=== PATIENT | female | born 1955 | race American Indian/Alaskan Native ===

== ENCOUNTER 2019-10-01 20:24 | Emergency (ER) | payer BC ==
--- NOTE | 2019-10-01 20:36 | Event Note ---
ED Screening Note Date of service: 10/01/19 Time: 20:34 ED Screening Note: 64 y o f with pmh of anemia was sent by PCP for low H and H pt cc of weakness, fatigue This initial assessment/diagnostic orders/clinical plan/treatment(s) is/are subject to change based on patients health status, clinical progression and re- assessment by fellow clinical providers in the ED. Further treatment and workup at subsequent clinical providers discretion. Patient/guardian urged not to elope from the ED as their condition may be serious if not clinically assessed and managed. Initial orders include: cbc,bmp, type and screen main side eval
[2019-10-01 21:27] LABS: Basophils # (Auto) 0.1 K/mm3 (0.0-0.1); Basophils % (Auto) 0.7 % (0.0-1.8); Eosinophils # (Auto) 0.1 K/mm3 (0.0-0.4); Eosinophils % (Auto) 0.8 % (0.0-4.3); Hematocrit 21.1 % (30.3-42.9); Hemoglobin 6.5 gm/dl (10.1-14.3); Lymphocytes # (Auto) 1.1 K/mm3 (1.2-5.4); Lymphocytes % (Auto) 11.4 % (13.4-35.0); Mean Corpuscular HGB Conc 31 % (30-34); Mean Corpuscular Volume 70 fl (79-97); Monocytes % (Auto) 10.4 % (0.0-7.3); Platelet Count 456 K/mm3 (140-440); Red Cell Distribution Width 17.7 % (13.2-15.2)
[2019-10-01 21:43] LABS: Calcium 9.1 mg/dL (8.4-10.2)
[2019-10-01] MEDS ORDERED: SODIUM CHLORIDE 0.9% 500 ML 500 ML IV ONE (22:15)
--- NOTE | 2019-10-01 22:22 | Emergency Department Report ---
- General Chief complaint: Recheck/Abnormal Lab/Rx Stated complaint: BLOOD COUNT 6.3 Time Seen by Provider: 10/01/19 22:03 Source: patient Mode of arrival: Ambulatory Limitations: No Limitations - History of Present Illness Initial comments: Ms. Sylvester is a 64-year-old female with history of anemia, hypertension, gout who presents with fatigue and weakness for the past 5 weeks. She is severe shortness of breath upon exertion. She is unable to walk 10 steps before getting out of breath. She denies dark stools. She denies bloody stools. She was diagnosed with anemia 8 to 9 months ago. Her PCP is located at [facility]. She has never had a colonoscopy. She has been "putting it off". Her PCP referred her to the emergency department for low hemoglobin. She was instructed to take vitamin B12. Complaint: generalized weakness -: Gradual, week(s) (5) Location: generalized Severity: moderate Severity scale (0 -10): 0 Consistency: constant Improves with: none Worsens with: none Associated Symptoms: other (Fatigue shortness of breath) - Related Data Home Medications Medication Instructions Recorded Confirmed Last Taken Acetaminophen [Tylenol] 1,000 mg PO Q8H PRN 10/01/19 10/01/19 Unknown Aspirin 325 mg PO BID 10/01/19 10/01/19 Unknown Colchicine 0.6 mg PO DAILY 10/01/19 10/01/19 10/01/19 Cyanocobalamin (Vitamin B-12) 1,000 mcg PO DAILY 10/01/19 10/01/19 Unknown [B-12] Cyclobenzaprine [Flexeril] 5 mg PO TID PRN 10/01/19 10/01/19 Unknown Docusate Sodium [Colace] 100 mg PO BID PRN 10/01/19 10/01/19 Unknown Ferrous Sulfate [Iron 325 MG] 325 mg PO TID 10/01/19 10/01/19 Unknown Lisinopril/Hydrochlorothiazide 1 tab PO QDAY 10/01/19 10/01/19 Unknown [Zestoretic 20-25 mg] allopurinoL [Zyloprim] 100 mg PO BID 10/01/19 10/01/19 Unknown amLODIPine [Norvasc] 10 mg PO DAILY 10/01/19 10/01/19 10/01/19 1000 Previous Rx's Medication Instructions Recorded Last Taken Type Ferrous Sulfate [Ferrous Sulfate 324 mg PO TID #90 tablet. 10/01/19 Unknown Rx 324 MG] Allergies Allergy/AdvReac Type Severity Reaction Status Date / Time codeine Allergy Hives Verified 10/01/19 20:27 Sulfa (Sulfonamide Allergy Hives Verified 10/01/19 20:27 Antibiotics) ED Review of Systems ROS: Stated complaint: BLOOD COUNT 6.3 Other details as noted in HPI Comment: All other systems reviewed and negative Constitutional: fever, malaise. denies: chills ENT: denies: ear pain Respiratory: shortness of breath. denies: cough Cardiovascular: denies: chest pain Gastrointestinal: denies: abdominal pain, nausea, vomiting, hematemesis, melena, hematochezia ED Past Medical Hx - Past Medical History Previous Medical History?: Yes Hx Hypertension: Yes Hx Arthritis: Yes (GOUT) Additional medical history: anemia - Surgical History Past Surgical History?: Yes Additional Surgical History: c-sec - Social History Smoking Status: Never Smoker - Medications Home Medications: Home Medications Medication Instructions Recorded Confirmed Last Taken Type Acetaminophen [Tylenol] 1,000 mg PO Q8H PRN 10/01/19 10/01/19 Unknown History Aspirin 325 mg PO BID 10/01/19 10/01/19 Unknown History Colchicine 0.6 mg PO DAILY 10/01/19 10/01/19 10/01/19 History Cyanocobalamin (Vitamin B-12) 1,000 mcg PO DAILY 10/01/19 10/01/19 Unknown History [B-12] Cyclobenzaprine [Flexeril] 5 mg PO TID PRN 10/01/19 10/01/19 Unknown History Docusate Sodium [Colace] 100 mg PO BID PRN 10/01/19 10/01/19 Unknown History Ferrous Sulfate [Ferrous Sulfate 324 mg PO TID #90 tablet. 10/01/19 Unknown Rx 324 MG] Ferrous Sulfate [Iron 325 MG] 325 mg PO TID 10/01/19 10/01/19 Unknown History Lisinopril/Hydrochlorothiazide 1 tab PO QDAY 10/01/19 10/01/19 Unknown History [Zestoretic 20-25 mg] allopurinoL [Zyloprim] 100 mg PO BID 10/01/19 10/01/19 Unknown History amLODIPine [Norvasc] 10 mg PO DAILY 10/01/19 10/01/19 10/01/19 History 1000 ED Physical Exam - General Limitations: No Limitations General appearance: alert, in no apparent distress - Head Head exam: Present: atraumatic, normocephalic - Eye Eye exam: Present: normal appearance - ENT ENT exam: Present: mucous membranes moist - Neck Neck exam: Present: normal inspection, full ROM - Respiratory Respiratory exam: Present: normal lung sounds bilaterally. Absent: respiratory distress, wheezes, rales, rhonchi - Cardiovascular Cardiovascular Exam: Present: regular rate, normal rhythm, normal heart sounds. Absent: systolic murmur, diastolic murmur, rubs, gallop - GI/Abdominal GI/Abdominal exam: Present: soft, normal bowel sounds. Absent: distended, tenderness, guarding, rebound - Rectal Rectal exam: Present: normal rectal tone, heme (-) stool, hemorrhoids - Extremities Exam Extremities exam: Present: normal inspection - Neurological Exam Neurological exam: Present: alert, oriented X3 - Psychiatric Psychiatric exam: Present: normal affect, normal mood - Skin Skin exam: Present: warm, dry, intact, normal color. Absent: rash ED Course Vital Signs 10/01/19 10/01/19 10/01/19 20:59 21:54 22:00 Temperature 98.6 F 98.2 F Pulse Rate 96 H 89 Respiratory 18 11 L Rate Blood Pressure 136/76 129/78 Blood Pressure 145/79 [Right] O2 Sat by Pulse 100 100 100 Oximetry 10/01/19 10/01/19 10/01/19 22:16 22:30 22:46 Temperature Pulse Rate 90 86 89 Respiratory 15 13 11 L Rate Blood Pressure 129/78 140/80 140/80 Blood Pressure [Right] O2 Sat by Pulse 100 100 100 Oximetry 10/01/19 10/01/19 10/01/19 23:00 23:01 23:16 Temperature Pulse Rate 101 H 89 81 Respiratory 14 13 11 L Rate Blood Pressure 134/62 134/62 134/62 Blood Pressure [Right] O2 Sat by Pulse 100 100 100 Oximetry 10/01/19 10/01/19 10/02/19 23:30 23:45 00:00 Temperature Pulse Rate 87 87 Respiratory 16 14 Rate Blood Pressure 142/72 142/72 142/72 Blood Pressure [Right] O2 Sat by Pulse 100 100 Oximetry 10/02/19 10/02/19 10/02/19 00:15 00:21 00:25 Temperature 98 F 97.8 F Pulse Rate 80 81 Respiratory 11 L 11 L Rate Blood Pressure 142/72 125/64 130/71 Blood Pressure [Right] O2 Sat by Pulse 100 100 Oximetry 10/02/19 10/02/19 10/02/19 00:30 00:40 00:46 Temperature 97.8 F Pulse Rate 83 81 86 Respiratory 14 11 L 13 Rate Blood Pressure 136/68 130/71 130/71 Blood Pressure [Right] O2 Sat by Pulse 100 100 100 Oximetry 10/02/19 01:00 Temperature 98.1 F Pulse Rate 82 Respiratory 15 Rate Blood Pressure 127/71 Blood Pressure 127/71 [Right] O2 Sat by Pulse 99 Oximetry ED Medical Decision Making - Lab Data Result diagrams: 10/01/19 21:13 10/01/19 21:13 - Medical Decision Making Ms. Tai presents with microcytic anemia, reported low hemoglobin per outpatient labs. Differential diagnosis includes chronic GI blood loss, iron deficiency, Hemoccult negative stools. I have referred Ms. Tai to ent surgeon, g astroenterologist and PCP. I recommend outpatient colonoscopy. Also recommended outpatient hematology evaluation. I have prescribed iron tablets. I strongly recommended high-fiber diet. She received transfusion packed red blood cells which were indicated due to severe symptoms and tachycardia with minimal exertion. She did not have adverse reaction to transfusion. Discharged home in stable condition. Critical care attestation.: If time is entered above; I have spent that time in minutes in the direct care of this critically ill patient, excluding procedure time. ED Disposition Clinical Impression: Microcytic anemia Disposition: DC-01 TO HOME OR SELFCARE Is pt being admited?: No Does the pt Need Aspirin: No Condition: Stable Instructions: Iron Rich Diet (ED), Iron Deficiency Anemia (ED) Additional Instructions: It is strongly advised that you see our cattle dehorner for colonoscopy. Also please see our ent surgeon for further investigation for anemia. Also see our primary care physician for a full physical. Prescriptions: Ferrous Sulfate [Ferrous Sulfate 324 MG] 324 mg PO TID #90 tablet.dr Referrals: SHANDRA PRADHAN MD [Staff Physician] - 3-5 Days ELISABETH ALVAREZ MD [Staff Physician] - 3-5 Days MANSOOR HEALY MD [Staff Physician] - 3-5 Days Forms: Work/School Release Form(ED)
[2019-10-02] MEDS ORDERED: SODIUM CHLORIDE 0.9% 500 ML 500 ML ONE (00:23)
[2019-10-02 02:22] VITALS: BP 123/63
== END 2019-10-02 02:23 | disposition home or self-care (01) ==
LOC: ED 20:24
DX: D50.9 Iron deficiency anemia, unspecified (principal); I10 Essential (primary) hypertension; M19.90 Unspecified osteoarthritis, unspecified site; Z79.82 Long term (current) use of aspirin; Z79.899 Other long term (current) drug therapy; Z88.2 Allergy status to sulfonamides; Z88.6 Allergy status to analgesic agent
CPT/HCPCS: 36415; 36430; 80048; 85025; 86850; 86900; 86901; 86920; 99283; J7040; P9016

== ENCOUNTER 2020-04-08 07:33 | Outpatient (CLI) | payer BC ==
[2020-04-08 08:48] LABS: Blood Urea Nitrogen 24 mg/dL (7-17)
--- NOTE | 2020-04-08 10:57 | Cat Scan Report ---
CT CHEST WITH CONTRAST INDICATION / CLINICAL INFORMATION: D64.9 ANEMIA/R68.89Other general symptoms and signs. TECHNIQUE: Axial CT images were obtained through the chest after 100 cc Omnipaque 300 IV contrast. Sagittal and coronal reformatted images. All CT scans at this location are performed using CT dose reduction for A MICHAEL by means of automated exposure control. COMPARISON: None available. FINDINGS: HEART: No significant abnormality. THORACIC AORTA: No significant abnormality. MEDIASTINUM and JOSE M: The inferior half of the thyroid gland is included. The thyroid gland is enlarg ed and heterogeneous with scattered ill-defined thyroid nodules. This probably represents a multinodu lar goiter. The remainder of the mediastinum is unremarkable. No pathologic adenopathy. LUNGS: No acute air space or interstitial disease. Bilateral pulmonary nodules are identified. Appro ximately 5 nodules are identified in the right lung with the largest measuring 1.2 cm in the right lo wer lobe. 3 or 4 pulmonary nodules are identified in the left lung with the largest measuring 5 mm in the left upper lobe. PLEURA: No significant pleural effusion. No pneumothorax. SKELETAL SYSTEM: Mild thoracic spondylosis. No fracture or suspicious bony lesion is appreciated IMPRESSION: Bilateral pulmonary nodules are identified concerning for a metastatic process. No thoracic adenopath y. Probable multinodular goiter. CT ABDOMEN AND PELVIS WITH CONTRAST HISTORY: D64.9 ANEMIA/R68.89Other general symptoms and signs COMPARISON: None. TECHNIQUE: Axial CT images were obtained through the abdomen and pelvis after 100 cc of Omnipaque 300 intravenously. Sagittal and coronal reformatted images. All CT scans at this location are performed using CT dose reduction for ALARA by means of automated exposure control. FINDINGS: CT ABDOMEN: Liver: No significant abnormality. Biliary: There are multiple small calcified gallstones in the fundus of the gallbladder. No abnormal biliary dilatation or inflammation. Spleen: No significant abnormality. Unenlarged. Pancreas: No significant abnormality. Adrenals: No significant abnormality. Kidneys: There are a few bilateral simple renal cysts with the largest measuring 2.7 cm at the superi or pole of the left kidney. The kidneys and collecting systems are unremarkable otherwise. Lymphatics: No pathologic lymphadenopathy is identified. There are 2 borderline lymph nodes in the po rta hepatis measuring 1 cm in short axis. Vasculature: No significant abnormality. Bowel/Peritoneum: Mild diverticulosis of the distal colon is identified. No evidence for acute inflam mation, obstruction or obvious mass in the GI system. No free fluid or free air. The appendix is norm al. CT PELVIS: : The uterus is normal size and contour. Subcentimeter calcified fibroid is noted in the right late ral wall. There is a second 1.4 cm calcification overlying the left fallopian tubule which is of unce rtain significance. The ovaries are unremarkable. No suspicious gynecological mass is appreciated. Th e bladder and distal ureters are unremarkable. Osseous Structures: Moderate thoracolumbar spondylosis. No fracture or suspicious bony lesion is appr eciated. Additional Findings: Small umbilical hernia containing fat. IMPRESSION: Cholelithiasis but no evidence for acute cholecystitis. Bilateral simple renal cysts. Borderline joe hepatis lymph nodes which are likely reactive in nature. No visceral mass or pathologic adenopathy is detected. Small umbilical hernia containing fat. Signer Name: David Tamayo Jr, MD Signed: 04/08/2020 10:52 AM Workstation Name: [id number]
== END 2020-04-08 07:34 | disposition home or self-care (01) ==
LOC: CT 07:33
PROVIDERS: ATTEND Internal Medicine Hematology & Oncology
DX: K80.20 Calculus of gallbladder without cholecystitis without obstruction (principal); R91.8 Other nonspecific abnormal finding of lung field; D64.9 Anemia, unspecified; R68.89 Other general symptoms and signs; M10.9 Gout, unspecified; M19.90 Unspecified osteoarthritis, unspecified site; N28.1 Cyst of kidney, acquired; K42.0 Umbilical hernia with obstruction, without gangrene
CPT/HCPCS: 36415; 71260; 74177; 82565; 84520; Q9967

== ENCOUNTER 2020-10-09 08:35 | Outpatient (CLI) | payer MEDICARE | END 2020-10-09 08:36 | disposition home or self-care (01) | LOC: MAMMO 08:35 | PROVIDERS: ATTEND Internal Medicine | DX: Z12.31 Encounter for screening mammogram for malignant neoplasm of breast (principal) | CPT/HCPCS: 77067 ==

== ENCOUNTER 2020-10-26 09:35 | Outpatient (CLI) | payer MEDICARE ==
[2020-10-26 11:12] LABS: Blood Urea Nitrogen 21 mg/dL (7-17)
--- NOTE | 2020-10-26 12:09 | Cat Scan Report ---
CT CHEST ABDOMEN AND PELVIS WITH CONTRAST INDICATION / CLINICAL INFORMATION: 65-year-old female with history of anemia, gout, osteoarthritis and pulmonary nodule TECHNIQUE: Axial CT images were obtained through the chest, abdomen and pelvis after 100 cc Omnipaque 300 morgan grams percent IV contrast. All CT scans at this location are performed using CT dose reduction for A MICHAEL by means of automated exposure control. COMPARISON: 04/08/2020 CT chest abdomen pelvis FINDINGS: THORACIC INLET: Enlarged thyroid gland predominantly left lobe with intrathoracic thyroid goiter on t he left unchanged from previous exam HEART: No significant abnormality. Moderate coronary calcifications present THORACIC AORTA: No significant abnormality. MEDIASTINUM and JOSE M: No significant abnormality. LUNGS: No acute air space or interstitial disease. PLEURA: No significant pleural effusion. No pneumothorax. LIVER: No significant abnormality. GALLBLADDER: Cholelithiasis BILE DUCTS: No significant abnormality. PANCREAS: No significant abnormality. SPLEEN: No significant abnormality. ADRENALS: No significant abnormality. RIGHT KIDNEY and URETER: 2 cm right renal cyst. LEFT KIDNEY and URETER: 2.8 cm left renal cyst STOMACH and SMALL BOWEL: No significant abnormality. COLON: No significant abnormality. APPENDIX: No significant abnormality. PERITONEUM: Small anterior abdominal wall defect with herniation of fat No free fluid. No free air. N o fluid collection. LYMPH NODES: No significant adenopathy. AORTA and ARTERIES: No significant abnormality. IVC and VEINS: No significant abnormality. URINARY BLADDER: No significant abnormality. REPRODUCTIVE ORGANS: No interval change in the calcifications involving the pelvis adjacent to the ut erus questionable pedunculated fibroid ADDITIONAL FINDINGS: None. SKELETAL SYSTEM: Degenerative changes thoracic spine. IMPRESSION: 1. No interval change as compared to previous CT chest abdomen pelvis 2. Enlarged thyroid with a left intrathoracic thyroid goiter 3. Bilateral renal cyst 3. Cholelithiasis Signer Name: Jose Ramon Carrillo MD Signed: 10/26/2020 12:04 PM Workstation Name: [id number]
== END 2020-10-26 09:36 | disposition home or self-care (01) ==
LOC: CT 09:35
PROVIDERS: ATTEND Internal Medicine Hematology & Oncology
DX: N28.1 Cyst of kidney, acquired (principal); E04.9 Nontoxic goiter, unspecified; I25.10 Atherosclerotic heart disease of native coronary artery without angina pectoris; K80.20 Calculus of gallbladder without cholecystitis without obstruction; D64.9 Anemia, unspecified; M10.9 Gout, unspecified; R91.8 Other nonspecific abnormal finding of lung field; M19.90 Unspecified osteoarthritis, unspecified site; R68.89 Other general symptoms and signs
CPT/HCPCS: 36415; 71260; 74177; 82565; 84520; Q9967

== ENCOUNTER 2021-01-11 10:50 | Outpatient (CLI) | payer MEDICARE ==
--- NOTE | 2021-01-11 12:05 | XRay Report ---
XR knee 1-2V RT INDICATION / CLINICAL INFORMATION: RIGHT KNEE PAIN. COMPARISON: None available. FINDINGS: No acute fracture. Normal alignment. Decreased joint space predominantly within the medial compartm ent. With bulky osteophytes of the patellofemoral compartment. .No destructive osseous lesion or susp icious periosteal reaction. Impression: 1. Moderate osteoarthritis. Signer Name: Junaid Abdul MD Signed: 01/11/2021 12:01 PM Workstation Name: [id number]
== END 2021-01-11 10:51 | disposition home or self-care (01) ==
LOC: XRAY 10:50
PROVIDERS: ATTEND Internal Medicine
DX: M17.12 Unilateral primary osteoarthritis, left knee (principal)

== ENCOUNTER 2021-04-05 10:03 | Outpatient (CLI) | payer MEDICARE ==
[2021-04-05 11:09] LABS: Blood Urea Nitrogen 23 mg/dL (7-17)
--- NOTE | 2021-04-05 13:31 | Cat Scan Report ---
CT CHEST, ABDOMEN AND PELVIS WITH CONTRAST HISTORY: Anemia, unspecified. COMPARISON: Prior CT on 10/26/2020 TECHNIQUE: Routine chest, abdominal and pelvic CT exam performed following intravenous contrast admi nistration. 100 mL Omnipaque [address] scans at this location are performed using CT d ose reduction for ALARA by means of automated exposure control. FINDINGS: CT CHEST: Lungs: No significant abnormality. Previous identified pulmonary nodules on the scan from 04/08/[address] resolved. Trachea and Bronchi: No significant abnormality. Heart and Pericardium: Mild coronary atherosclerotic calcifications. Vasculature: No significant abnormality. Lymphatics: No lymphadenopathy. CT ABDOMEN: Liver: No significant abnormality. Biliary: Cholelithiasis without evidence of acute cholecystitis. Spleen: No significant abnormality. Unenlarged. Pancreas: No significant abnormality. Adrenals: No significant abnormality. Kidneys: Stable bilateral renal cysts. Lymphatics: No lymphadenopathy. Vasculature: No significant abnormality. Bowel/Peritoneum: Nonobstructive bowel. Sigmoid diverticulosis without mesocolonic fat stranding. No free air. No free fluid. Small fat-containing umbilical hernia again noted. CT PELVIC: : No significant abnormality. Lymphatics: No lymphadenopathy. Osseous Structures: No aggressive appearing osseous lesions. Additional Findings: Stable large left thyroid nodule measuring 4.3 cm. IMPRESSION: 1. No acute findings or adverse change from the prior exam. 2. Stable chronic findings as above. Signer Name: Arnaud Jhaveri MD Signed: 04/05/2021 1:26 PM Workstation Name: [id number]
== END 2021-04-05 10:04 | disposition home or self-care (01) ==
LOC: CT 10:03
PROVIDERS: ATTEND Internal Medicine Hematology & Oncology
DX: R91.8 Other nonspecific abnormal finding of lung field (principal); N28.1 Cyst of kidney, acquired; R59.0 Localized enlarged lymph nodes; K57.30 Diverticulosis of large intestine without perforation or abscess without bleeding; D64.9 Anemia, unspecified; N26.1 Atrophy of kidney (terminal); I25.10 Atherosclerotic heart disease of native coronary artery without angina pectoris; E04.1 Nontoxic single thyroid nodule; K42.9 Umbilical hernia without obstruction or gangrene
CPT/HCPCS: 36415; 71260; 74177; 82565; 84520; Q9967

== ENCOUNTER 2021-08-24 08:20 | Outpatient (CLI) | payer MEDICARE ==
--- NOTE | 2021-08-24 09:43 | XRay Report ---
RIGHT KNEE 2 VIEWS [id number] INDICATION: PAIN IN RIGHT KNEE COMPARISON: 07/09/2021 FINDINGS: Knee prosthesis appears to be in good position. No fractures or dislocations are seen. Signer Name: Amaury Retana MD Signed: 08/24/2021 9:38 AM Workstation Name: [id number]
== END 2021-08-24 08:21 | disposition home or self-care (01) ==
LOC: XRAY 08:20
PROVIDERS: ATTEND Orthopaedic Surgery
DX: M25.561 Pain in right knee (principal); Z96.651 Presence of right artificial knee joint

== ENCOUNTER 2021-11-15 10:33 | Outpatient (CLI) | payer MEDICARE ==
--- NOTE | 2021-11-16 09:47 | Mammography Report ---
DIGITAL SCREENING MAMMOGRAM WITH CAD, 11/15/2021 CLINICAL INFORMATION / INDICATION: Routine screening TECHNIQUE: Digital bilateral 2D mammography was obtained in the craniocaudal and mediolateral obliqu e projections. This examination was interpreted with the benefit of Computer-Aided Detection analysis . COMPARISON: 10/09/2020 FINDINGS: Breast Density: The breasts are almost entirely fatty. No dominant mass, suspicious calcifications, or architectural distortion in either breast. Benign-appearing calcifications including moderate arterial calcifications are again seen. IMPRESSION: No mammographic evidence of malignancy. Follow up recommendation: Routine yearly BI-RADS Category 2: BENIGN. A "normal" or negative report should not discourage follow up or biopsy of a clinically significant f inding. A written summary of these findings will be mailed to the patient. The patient will be entered into a mammography reporting system which will generate a reminder letter for the patient's next appointmen t at the appropriate interval. The [employer] recommends yearly mammograms starting at age 40 and continuing as l santhosh as a woman is in good health. Breast MRI is recommended for women with an approximate 20-25% or greater lifetime risk of breast cancer, including women with a strong family history of breast or ova marvin cancer or who have been treated for Hodgkin's disease. Signer Name: Amaury Retana MD Signed: 11/16/2021 9:43 AM Workstation Name: [id number]
== END 2021-11-15 10:34 | disposition home or self-care (01) ==
LOC: MAMMO 10:33
PROVIDERS: ATTEND Internal Medicine
DX: Z12.31 Encounter for screening mammogram for malignant neoplasm of breast (principal); N64.89 Other specified disorders of breast
CPT/HCPCS: 77067

== ENCOUNTER 2022-03-18 08:34 | Outpatient (CLI) | payer MEDICARE ==
--- NOTE | 2022-03-18 11:06 | Mammography Report ---
DEXA BONE DENSITY SCAN INDICATION / CLINICAL INFORMATION: Z13.820. 66 years Female COMPARISON: None available. LUMBAR SPINE, L1-L4: - Bone mineral density (BMD) = 0.969 g/cm2. - T-score = -0.7 - Z-score = 0.6 Change (%) since most recent prior (if available): None available. LEFT HIP, NECK : - Bone mineral density (BMD) = 0.692 g/cm2. - T-score = -1.4 - Z-score = -0.4 Change (%) since most recent prior (if available): None available. IMPRESSION: 1. WHO Classification: Osteopenia. Fracture Risk: Increased. 2. 10-Year Fracture Risk (FRAX) = Major Osteoporotic 3.4% / Hip: 0.4% FRAX generally not reported for patients with normal or osteoporotic BMD, in [id number] dilma ents younger than age 50, or in patients undergoing pharmacotherapy BMD Reporting Guidelines (ISCD, 2015) BMD Reporting in Postmenopausal Women and in Men Age 50 and Older - T-scores are preferred. - The WHO densitometric classification is applicable. BMD Reporting in Females Prior to Menopause and in Males Younger Than Age 50 - Z-scores, not T-scores, are preferred. This is particularly important in children. - A Z-score of -2.0 or lower is defined as below the expected range for age, and a Z-score above -2.0 is within the expected range for age. - Osteoporosis cannot be diagnosed in men under age 50 on the basis of BMD alone. - The WHO diagnostic criteria may be applied to women in the menopausal transition. http://www.iscd.org/official-positions/1788-gjuu-jrwbgxai-positions-adult/ Signer Name: Sander Hernandez DO Signed: 03/18/2022 11:02 AM Workstation Name: [email or web address]
== END 2022-03-18 08:35 | disposition home or self-care (01) ==
LOC: MAMMO 08:34
PROVIDERS: ATTEND Internal Medicine
DX: M85.88 Other specified disorders of bone density and structure, other site (principal)
CPT/HCPCS: 77080

== ENCOUNTER 2022-03-22 08:58 | Outpatient (CLI) | payer MEDICARE ==
[2022-03-22 12:27] LABS: Basophils # (Auto) 0.1 K/mm3 (0.0-0.1); Eosinophils # (Auto) 0.1 K/mm3 (0.0-0.4); Hematocrit 47.8 % (30.3-42.9); Hemoglobin 15.9 gm/dl (10.1-14.3); Lymphocytes # (Auto) 1.4 K/mm3 (1.2-5.4); Lymphocytes % (Auto) 18.7 % (13.4-35.0); Mean Corpuscular HGB Conc 33 % (30-34); Mean Corpuscular Volume 91 fl (79-97); Monocytes # (Auto) 0.8 K/mm3 (0.0-0.8); Monocytes % (Auto) 11.1 % (0.0-7.3); Platelet Count 227 K/mm3 (140-440); Red Blood Count 5.26 M/mm3 (3.65-5.03); Red Cell Distribution Width 15.2 % (13.2-15.2)
[2022-03-22 13:15] LABS: Color,Urine Straw (Yellow)
[2022-03-22 13:36] LABS: Mucus,Urine FEW /HPF
[2022-03-22 14:32] LABS: Albumin 4.4 g/dL (3.9-5); Calcium 9.6 mg/dL (8.4-10.2); Chol/HDL Ratio 3.43 %
[2022-03-27 14:43] LABS: Vitamin D, 25-OH, D2 11 ng/mL
== END 2022-03-22 08:59 | disposition home or self-care (01) ==
LOC: LABHHL 08:58
PROVIDERS: ATTEND Internal Medicine
DX: Z00.00 Encounter for general adult medical examination without abnormal findings (principal); E55.9 Vitamin D deficiency, unspecified; R73.03 Prediabetes; E78.5 Hyperlipidemia, unspecified; R53.83 Other fatigue; R35.1 Nocturia; Z79.899 Other long term (current) drug therapy
CPT/HCPCS: 36415; 80053; 80061; 81001; 82306; 82607; 83036; 84443; 85025; 87086

== ENCOUNTER 2022-04-05 08:51 | Outpatient (CLI) | payer MEDICARE ==
--- NOTE | 2022-04-05 10:56 | XRay Report ---
XR knees standing AP Bilateral INDICATION / CLINICAL INFORMATION: M25.562 PAIN IN LEFT KNEE. COMPARISON: 08/24/2021 FINDINGS: Right total knee arthroplasty projects in expected position without hardware complication. Moderate t ricompartmental osteoarthritis of the left knee, preferentially involving the medial compartment. No significant joint effusion of either knee. There is no evidence of fracture. Soft tissues are unremar kable. Signer Name: Candido Smith MD Signed: 04/05/2022 10:52 AM Workstation Name: [id number]
== END 2022-04-05 08:52 | disposition home or self-care (01) ==
LOC: XRAY 08:51
PROVIDERS: ATTEND Orthopaedic Surgery
DX: M17.12 Unilateral primary osteoarthritis, left knee (principal); Z96.651 Presence of right artificial knee joint
CPT/HCPCS: 73565